=== PATIENT | female | born 1965 | race Caucasian/White ===

== ENCOUNTER → 2019-06-17 | Outpatient (CLI) | payer BC ==
[2019-06-17 08:42] LABS: ALBUMIN 3.8 GM/DL (3.2-5.2); ALT/SGPT 34 U/L (12-78); BILIRUBIN,TOTAL 0.4 MG/DL (0.2-1.0); BLOOD UREA NITROGEN 25 MG/DL (7-18); CALCIUM LEVEL 8.4 MG/DL (8.5-10.1); CARBON DIOXIDE LEVEL 25 MEQ/L (21-32); CHLORIDE LEVEL 109 MEQ/L (98-107); CHOLESTEROL LEVEL 152 MG/DL (<200); CHOLESTEROL RISK RATIO 2.054 (<5); CREATININE FOR GFR 0.93 MG/DL (0.55-1.30); GLOMERULAR FILTRATION RATE > 60.0 (>51); GLUCOSE, FASTING 73 MG/DL (70-100); HDL CHOLESTEROL 74 MG/DL (>40); LDL CHOLESTEROL 70 MG/DL (<100); NON-HDL-C 78 MG/DL; POTASSIUM SERUM 4.1 MEQ/L (3.5-5.1); SODIUM LEVEL 139 MEQ/L (136-145); TOTAL PROTEIN 6.5 GM/DL (6.4-8.2); TRIGLYCERIDES LEVEL 39 MG/DL (<150)
[2019-06-17 09:30] LABS: TOTAL 25(OH) VITAMIN D 45.5 NG/ML (30.0-100.0)
== END ==
LOC: M LAB 07:14
DX: N95.1 Menopausal and female climacteric states (principal)

== ENCOUNTER 2019-06-21 11:56 | Emergency (ER) | payer OTHER, BC ==
[~2019-06-21] VITALS: Ht 162.6 cm; Wt 65.9 kg
[2019-06-21] MEDS ORDERED: ACTI1TAB PO (12:07)
[2019-06-21] MEDS ORDERED: IBUP1TAB6 PO (12:07)
--- NOTE | 2019-06-21 12:57 | REP ---
CT of the brain without IV contrast: There is no subdural or epidural hematoma. There is no edema, mass effect or midline shift. The ventricles are normal size. The visualized paranasal sinuses and mastoid air cells are clear. The cortical stripe is unremarkable. Impression: Essentially negative CT study of the brain. Electronically Signed by Jeremy Cantrell MD 06/21/2019 12:48 P
--- NOTE | 2019-06-21 13:06 | REP ---
CT of the cervical spine: Axial images are acquired with helical scanning and a reformatted sagittal and coronal projections. Vertebral body heights are normal. Alignment is normal except for 2 mm of anterolisthesis of C. The three vertebral body. There is degenerative disc disease at C4-5, C5-6 and C6-7. The prevertebral soft tissues are unremarkable. The facets are normally aligned. There is facet osteoarthritis. There is questionably a fracture at the tip of the C3 posterior facet versus an accessory ossicle. Correlate with clinical point tenderness. No other posterior element fractures are identified. Impression: Questionable fracture versus accessory ossicle at the posterior tip of the C3 left facet. Correlate with clinical point tenderness. Multilevel degenerative disc disease. 2 ml of anterolisthesis of the C2 vertebral body, chronic versus acute. Depending on symptoms, consider MRI. Facet osteoarthritis. Electronically Signed by Jeremy Cantrell MD 06/21/2019 12:58 P
[2019-06-21] MEDS ORDERED: LORazepam 2 MG/ML VIAL (J2060) IV STA (13:36)
--- NOTE | 2019-06-21 14:57 | REP ---
MRI CERVICAL SPINE WITHOUT CONTRAST: HISTORY: Trauma. Question fracture and anterolisthesis. Comparison CT study of the cervical spine is from June 21, 2019. TECHNIQUE: Sagittal and axial T1 and T2-weighted scans are acquired in the usual fashion with and without fat saturation. Sequences include spin echo, turbo spin-echo, and STIR imaging sequences. MRI FINDINGS: There is straightening and reversal of the normal cervical lordosis. There is no evidence of occult fracture. T2-weighted inversion recovery images show no evidence of ligament disruption anteriorly or posteriorly. There is degenerative spondylosis pattern multiple cervical levels. Axial and sagittal images at the C3-4 disc level show disc bulging. There is degenerative 2 mm anterolisthesis at C3-4. This does not appear to have traumatic features. At C4-5, there is diffuse disc bulging effacing the ventral subarachnoid space. This is associated with some bilateral mild uncovertebral spurring. At C5-6, there are similar findings. There is uncovertebral spurring producing foraminal encroachment on the left. At C6-C7, there is diffuse disc bulging and osteophytic ridging. Mild left-sided uncovertebral spurring is seen at C6-7. C7-T1 level is unremarkable. Cervical cord is normal in coarse, caliber, and signal intensity on T1- and T2-weighted scans. No cord edema is seen. IMPRESSION: Degenerative spondylosis changes. No traumatic abnormality noted. Electronically Signed by Jerome Lopez MD 06/21/2019 03:53 P
[2019-06-21 15:23] VITALS: BP 129/61
== END 2019-06-21 15:35 | disposition home or self-care (01) ==
LOC: M ED 11:56
DX: S13.4XXA Sprain of ligaments of cervical spine, initial encounter (principal); R51 Headache; V49.40XA Driver injured in collision with unspecified motor vehicles in traffic accident, initial encounter; M50.321 Other cervical disc degeneration at C4-C5 level; M50.322 Other cervical disc degeneration at C5-C6 level; M50.323 Other cervical disc degeneration at C6-C7 level; M43.12 Spondylolisthesis, cervical region; M46.92 Unspecified inflammatory spondylopathy, cervical region; Z79.899 Other long term (current) drug therapy
CPT/HCPCS: 70450; 72125; 72141; 96374; 99284; J2060

== ENCOUNTER → 2019-07-09 | Outpatient (REF) | payer OTHER, BC ==
[~2019-07-09] MED LIST: ACTI1TAB PO; IBUP1TAB6 PO
[2019-07-09 15:51] LABS: FREE T3 2.2 PG/ML (2.2-4.0); FREE T4 1.01 NG/DL (0.76-1.46)
[2019-07-10 10:55] LABS: THYROGLOBULIN ANTIBODY 16.6 U/ML (<60.0); THYROID PEROXIDASE ANTIBODY < 28.0 U/ML (<60.0)
== END ==
LOC: M LABDRAW1 12:57
PROVIDERS: ATTEND Obstetrics & Gynecology
DX: N95.1 Menopausal and female climacteric states (principal); E03.9 Hypothyroidism, unspecified

== ENCOUNTER → 2019-07-24 | Outpatient (CLI) | payer BC ==
--- NOTE | 2019-07-25 03:17 | REP ---
Clinical: Left hip pain. Technique: Neutral and frog lateral views of the left hip. Findings: Osseous structures, joint spaces, and surrounding soft tissues are normal and age-appropriate. No overt arthritic changes are appreciated. No evidence for acute or healed injury. Impression: Normal left hip radiographs. Electronically Signed by Bolivar Minor MD 07/25/2019 03:08 A
--- NOTE | 2019-07-25 03:22 | REP ---
Clinical: Left knee pain. Technique: AP, lateral, bilateral oblique and sunrise views of the left knee. Findings: [place] view demonstrates fraying along the anterior patellar margin along with very minimal increased sclerosis along the posterior patellar surface. Mild increased sclerosis along the medial tibial plateau with very early medial spurring at the femoral condyle noted. No acute fracture dislocation. No effusion. Impression: Mild essentially age-related degenerative changes. Electronically Signed by Bolivar Minor MD 07/25/2019 03:14 A
== END ==
LOC: M RAD 10:18
DX: M79.605 Pain in left leg (principal); M25.552 Pain in left hip

== ENCOUNTER → 2019-08-14 | Outpatient (CLI) | payer BC ==
[2019-08-14 10:05] LABS: ESTRADIOL < 19.0 PG/ML; PROGESTERONE 0.43 NG/ML
[2019-08-16 00:06] LABS: DEHYDROEPIANDROSTERONE SULFATE 99.8 ug/dL (41.2-243.7); TESTOSTERONE FREE (DIRECT) 2.5 pg/mL (0.0-4.2)
== END ==
LOC: M LAB 06:50
PROVIDERS: ATTEND Obstetrics & Gynecology
DX: N95.1 Menopausal and female climacteric states (principal); E34.9 Endocrine disorder, unspecified; Z79.890 Hormone replacement therapy

== ENCOUNTER → 2019-08-20 | Outpatient (CLI) | payer BC ==
[2019-08-22 00:11] LABS: SEX HORMONE BINDING GLOBULIN 65.4 nmol/L (17.3-125.0)
== END ==
LOC: M LAB 10:30
PROVIDERS: ATTEND Obstetrics & Gynecology
DX: N95.1 Menopausal and female climacteric states (principal); E34.9 Endocrine disorder, unspecified; Z79.890 Hormone replacement therapy

== ENCOUNTER → 2019-11-06 | Outpatient (CLI) | payer BC ==
[2019-12-11 13:40] LABS: TESTOSTERONE FREE (DIRECT) See Separate Report PG/ML; TESTOSTERONE TOTAL FOR T&D See Separate Report NG/DL
[2019-12-11 13:41] LABS: DEHYDROEPIANDROSTERONE SULFATE See Separate Report MCG/DL
[2019-12-15 11:57] LABS: PROGESTERONE 0.21 NG/ML
== END ==
LOC: M LAB 12:00
PROVIDERS: ATTEND Obstetrics & Gynecology
DX: E34.9 Endocrine disorder, unspecified (principal); N95.1 Menopausal and female climacteric states; R68.82 Decreased libido; Z79.890 Hormone replacement therapy

== ENCOUNTER → 2020-02-04 | Outpatient (CLI) | payer BC ==
[2020-02-04 13:23] LABS: ESTRADIOL 80.5 PG/ML; PROGESTERONE 0.42 NG/ML
[2020-02-06 23:07] LABS: DEHYDROEPIANDROSTERONE UNCONJ 241 ng/dL (31-701); TESTOSTERONE FREE (DIRECT) 14.5 pg/mL (0.0-4.2)
== END ==
LOC: M LAB 12:07
PROVIDERS: ATTEND Obstetrics & Gynecology
DX: E34.9 Endocrine disorder, unspecified (principal); R68.82 Decreased libido; N95.1 Menopausal and female climacteric states; Z79.890 Hormone replacement therapy

== ENCOUNTER → 2020-03-11 | Outpatient (CLI) | payer BC ==
--- NOTE | 2020-03-11 13:31 | REPMRS ---
Patient History The patient states she had a clinical breast exam in 2019. No known family history of cancer. Digital Woman Screen Mammo: March 11, 2020 - Exam #: [id number] Bilateral CC and MLO view(s) were taken. Technologist: Sheela Hough, Technologist Prior study comparison: August 08, 2016, bilateral digital mammo screening bilat, performed at Dr. Ras Spears [facility]. October 14, 2008, bilateral digital mammo screening bilat, performed at [facility]. FINDINGS: The breast tissue is heterogeneously dense. This may lower the sensitivity of mammography. The Volpara volumetric breast density category is: C. There is a moderate amount of heterogeneously dense fibroglandular tissue which is fairly symmetric. There is no interval development of dominant mass, architectural distortion, or grouped microcalcification typical of malignancy. There has been no change in the appearance of the mammogram from the prior studies. 3-D tomosynthesis shows no additional findings. Assessment: BI-RADS/ACR category 1 mammogram. Negative Mammogram. Recommendation Routine screening mammogram of both breasts in 1 year (for women over age 40). This patient's [facility] Lifetime Breast Cancer RIsk is estimated at 10.7 %. This mammogram was interpreted with the aid of an FDA-approved computer-aided dectection system. Electronically Signed By: Fabian Lopez MD 03/11/20 0848
== END ==
LOC: M WHC 07:30
PROVIDERS: ATTEND Obstetrics & Gynecology
DX: Z12.31 Encounter for screening mammogram for malignant neoplasm of breast (principal); N95.1 Menopausal and female climacteric states

== ENCOUNTER → 2022-05-09 | Outpatient (CLI) | payer BC | LOC: M WHC 13:30 | PROVIDERS: ATTEND Pediatrics | DX: Z12.39 Encounter for other screening for malignant neoplasm of breast (principal) ==